=== PATIENT | female | born 1940 | race Caucasian/White ===

== ENCOUNTER 2019-10-05 16:12 | Inpatient (IN) | payer MEDICARE, BC ==
[~2019-10-05] VITALS: Ht 152.4 cm; Wt 149.2 kg
[~2019-10-05 16:12] MED LIST: ALPR0.254 PO; ASPI-482 PO; ASPI-630 PO; BRIM5DRO3 AU; BRIM5DRO3 EACHEYE; CIPR2.5D OS; DULO60CA45 PO; DULO60CA6 PO; FENT1PAT13 TP; FENT1PAT15 TP; FURO80TA3 PO; HYDR-2769 PO; INSU100C SQ; INSU100V13 SQ; INSU200I SQ; LEVIMER SQ; LEVO50TA5 PO; LISI-334 PO; META-21 PO; META800T PO; MONT10TA49 PO; POTA20TA4 PO; SIMV20TA18 PO; SITA100T PO
[2019-10-05] MEDS ORDERED: FLUT16SP NS (16:32)
[2019-10-05] MEDS ORDERED: POTA10TA17 PO (16:32)
[2019-10-05] MEDS ORDERED: diazePAM 2 MG TABLET PO PRN (16:45)
[2019-10-05] MEDS ORDERED: ACETAMINOPHEN 325 MG TABLET. PO PRN (16:45)
[2019-10-05] MEDS ORDERED: DOCUSATE SODIUM 100 MG CAPSULE. PO PRN (16:45)
[2019-10-05] MEDS ORDERED: BENZONATATE 100 MG CAPSULE. PO PRN (16:45)
[2019-10-05] MEDS ORDERED: ONDANSETRON PF 4 MG/2 ML VIAL. IVP PRN (16:45)
[2019-10-05] MEDS ORDERED: MAGNESIUM HYDROXIDE 2,400 MG/30 ML ORAL.SUSP. PO PRN (16:45)
[2019-10-05] MEDS: INSULIN LISPRO 300 UNITS/3 ML VIAL. SQ SCH (17:00)
[2019-10-05 19:00] VITALS: BP 152/60
[2019-10-05] MEDS: ALBUTEROL SULFATE 2.5 MG/3 ML NEBU. NEB SCH (20:49)
[2019-10-05] MEDS: PATCH REMOVAL. MC SCH (21:00)
[2019-10-05] MEDS: SIMVASTATIN 20 MG TABLET PO SCH (21:16)
[2019-10-05] MEDS: rOPINIRole 1 MG TABLET. PO SCH (21:16)
[2019-10-05] MEDS: ASPIRIN CHEWABLE 81 MG TABLET. PO SCH (21:16)
[2019-10-05] MEDS: MONTELUKAST SODIUM 10 MG TABLET. PO SCH (21:16)
[2019-10-05] MEDS: POTASSIUM CITRATE 10 MEQ TABLET.ER PO SCH (21:16)
[2019-10-05] MEDS: MUPIROCIN 2 % TOPICAL CREAM 30GM TUBE. TP SCH (21:16)
[2019-10-05] MEDS: FUROSEMIDE 80 MG TABLET. PO SCH (21:16)
[2019-10-05] MEDS: LISINOPRIL 20 MG TABLET PO SCH (21:16)
[2019-10-05] MEDS: INSULIN GLARGINE SYRINGE. SQ SCH (21:24)
[2019-10-05 23:00] VITALS: BP 118/99
[2019-10-06 03:00] VITALS: BP 123/84
[2019-10-06 03:47] LABS: BASO % 1 % (0-3); EOS # 0.3 x10^3/uL (0.0-0.7); EOS % 4 % (0-3); HEMATOCRIT 33.2 % (36.0-47.0); HEMOGLOBIN 10.7 g/dL (12.0-15.5); LYMPH # 0.9 x10^3/uL (1.0-4.8); LYMPH % 14 % (24-48); MEAN CORPUSCULAR HEMOGLOBIN 28 pg (25-35); MEAN CORPUSCULAR HGB CONC 32 g/dL (31-37); MEAN CORPUSCULAR VOLUME 86 fL (79-100); MONO # 0.9 x10^3/uL (0.0-1.1); MONO % 15 % (0-9); NEUT # 4.4 x10^3/uL (1.8-7.7); NEUT % 67 % (31-73); PLATELET COUNT 176 x10^3/uL (140-400); RED BLOOD COUNT 3.88 x10^6/uL (3.50-5.40); RED CELL DISTRIBUTION WIDTH 14.5 % (11.5-14.5); WHITE BLOOD COUNT 6.5 x10^3/uL (4.0-11.0)
[2019-10-06 04:00] LABS: CALCIUM 8.7 mg/dL (8.5-10.1); CREATININE 1.2 mg/dL (0.6-1.0); GFR 43.6; POTASSIUM 5.2 mmol/L (3.5-5.1)
[2019-10-06] MEDS: ALBUTEROL SULFATE 2.5 MG/3 ML NEBU. NEB SCH ×5 (06:04→22:00)
[2019-10-06 07:00] VITALS: BP 149/73
[2019-10-06] MEDS: LEVOTHYROXINE 50 MCG TABLET PO SCH (07:00)
[2019-10-06] MEDS: INSULIN LISPRO 300 UNITS/3 ML VIAL. SQ SCH ×3 (08:39→17:00)
[2019-10-06] MEDS: FLUTICASONE 50MCG/NASAL SPRAY 16GM BOTTLE. NS SCH (08:40)
[2019-10-06] MEDS: POTASSIUM CITRATE 10 MEQ TABLET.ER PO SCH (08:40)
[2019-10-06] MEDS: LISINOPRIL 20 MG TABLET PO SCH ×2 (08:41→21:20)
[2019-10-06] MEDS: rOPINIRole 1 MG TABLET. PO SCH ×2 (08:41→21:20)
[2019-10-06] MEDS: LINAGLIPTIN 5 MG TABLET PO SCH (08:41)
[2019-10-06] MEDS: MUPIROCIN 2 % TOPICAL CREAM 30GM TUBE. TP SCH ×2 (08:42→21:00)
[2019-10-06] MEDS: POLYETHYLENE GLYCOL 3350 17 GM PACKET. PO SCH (08:43)
[2019-10-06] MEDS: LIDOCAINE (700MG/PATCH) PATCH. TD SCH (08:45)
[2019-10-06] MEDS: DULoxetine HCL 30 MG CAPSULE.DR PO SCH (10:35)
[2019-10-06] MEDS: fentaNYL 100MCG/HR PATCH 1 PATCH PATCH TD SCH (10:36)
[2019-10-06] MEDS: INSULIN GLARGINE SYRINGE. SQ SCH ×2 (10:36→21:47)
[2019-10-06] MEDS: FUROSEMIDE 80 MG TABLET. PO SCH ×2 (10:36→21:20)
--- NOTE | 2019-10-06 10:36 | HP ---
ADMIT DATE: 10/06/2019 HISTORY OF PRESENT ILLNESS: The patient is a 79-year-old female patient who was admitted to [facility] with severe back pain. She has had a mechanical fall, was in her kitchen and fell backward, and landed squarely on her back. She might have lost consciousness temporarily. She was also noted to have some left-sided chest pain as well as pain radiating down her left leg. She did have also left-sided rib pain that is constant and dull in nature and moving makes her symptoms worse. The patient was admitted for pain management. She was extensively investigated in the Emergency Room and has had a CT scan of the head, which basically showed no acute intracranial finding. The x-ray of the chest and rib views showed the cardiomediastinal silhouette is similar in appearance. A rounded nodular opacity noted in the right hilum may reflect prominent vascular versus lymphadenopathy. No acutely displaced left-sided rib fracture identified. There are no significant pleural effusions. There is no pulmonary vascular congestion or pneumothorax. X-ray of the hip and pelvis showed there is no acute fracture or malalignment appreciated at the left hip noting that the study is limited due to the patient's large body habitus. CT scan of the orbit showed there is an inferior left orbital wall fracture, which may be chronic with a herniated fat. No evidence of herniation in the inferior rectus muscle. CT scan of the lumbar spine showed there is mild acute burst compression fracture of L1. There is no clear fracture line extension to the posterior element or retropulsion of the cortex into the central canal. She does have multilevel degenerative changes throughout the lumbar spine resulting in significant stenosis at the aforementioned levels and because of this finding and intractable pain, the patient was transferred to [facility] to consult the interventional radiologist to see whether she is a candidate for vertebroplasty. PAST MEDICAL HISTORY: Significant for congestive heart failure, hypertension, hyperlipidemia, morbid obesity, gastroesophageal reflux disease, generalized osteoarthritis, and hypothyroidism. PAST SURGICAL HISTORY: Significant for tonsillectomy, adenoidectomy, and tubal ligation. ALLERGIES: She is allergic to TETANUS. She is also allergic to IODINE CONTRAST, INTRAVENOUS PYELOGRAPHY DYE, and LYRICA. FAMILY HISTORY: Her father of myocardial infarction, has had glaucoma. Sister with multiple sclerosis. Mother with hypertension. SOCIAL HISTORY: She lives at home. Does not smoke, drink alcohol, or use any recreational drugs. REVIEW OF SYSTEMS: As per history of present illness. MEDICATIONS: She was transferred from [facility] to continue on following medications: MiraLax 17 g once a day, magnesium hydroxide 30 mL p.o. daily p.r.n. for constipation. She is on a Duragesic patch 100 mcg per hour topically q.72 h., hydrocodone/APAP 7.5/325 two tablets every 6 hours, furosemide 80 mg once a day, and Bactroban ointment applied topically twice a day. She is on Lidoderm patch applied topically at night time, on for 12 hours and off for 12 hours; Requip 1 mg twice a day; diazepam 2 mg twice a day; hydromorphone 1 mg IV every 2 hours; Colace 100 mg twice a day; potassium citrate 20 mEq twice a day; Lovenox 60 mg subcutaneously twice a day; Tradjenta 5 mg once a day. She is on Flonase 1 spray to each nostril twice a day and duloxetine or Cymbalta 60 mg daily. She is on aspirin 81 mg once a day, Humalog insulin 10 units before meals, levothyroxine 50 mcg once a day, Lantus insulin 30 units subcutaneously twice a day, simvastatin 20 mg at bedtime, Singulair 10 mg at bedtime, lisinopril 20 mg twice a day, Tessalon Perles 200 mg 3 times a day, albuterol sulfate 2.5 mg by nebulizer every 4 hours, ondansetron 4 mg IV every 8 hours, and Tylenol 650 mg every 4 hours as needed. PHYSICAL EXAMINATION: GENERAL: On arrival to [facility], the patient looked well and was clearly in no apparent respiratory distress. She was pale, but no jaundice, cyanosis, or thyromegaly. No jugular venous distention, but mild bilateral lower extremity edema. VITAL SIGNS: Her heart rate was 94, blood pressure was 157/67, temperature was 98.2, respiratory rate was 20, and oxygen saturation was 94% on room air. HEAD, EYES, EARS, NOSE, AND THROAT: Normocephalic, atraumatic. NECK: Supple. HEART: Showed normal first and second heart sounds. No gallop or murmur. CHEST: Clear to auscultation. No crepitation or rhonchi. ABDOMEN: Markedly distended, soft, nontender. NEUROLOGIC: She was awake, alert, responding appropriately. All cranial nerves intact. EXTREMITIES: She moves extremities without difficulty; however, whenever she tries to change her position or lying forward or any movement, precipitate severe back pain. LABORATORY DATA: Showed a white cell count 7200, hemoglobin 11, hematocrit 34, MCV 87, and platelet count of 174,000. Her chemistry showed a serum sodium 143, potassium 5.1, chloride 104, bicarbonate 33, anion gap of 6, BUN 44, creatinine 1.2, estimated GFR was 44 mL per minute. Her glucose 126 and calcium was 8.5. Total bilirubin, AST, ALT, and alkaline phosphatase were all normal. Total protein 6.2, albumin 2. Urinalysis was unremarkable. Nasal screen for MRSA by PCR was positive. ASSESSMENT AND PLAN: In summary, this is a 79-year-old female patient who was transferred from [facility] with intractable back pain. She has multiple imaging modalities including CT scan of the head, rib views, x-ray of the left hip, CT scan of the orbit, and a CT scan of the lumbar spine, which showed that she has mild acute burst compression fracture of L1 with no clear fracture line extension to the posterior elements or retropulsion of the cortex into the central canal. We will continue all her medication and we will consult Dr. Fuller tomorrow to see whether she is a candidate for vertebroplasty. KVNG CARRION MD DR: ARACELY/ana JOB#: [id number] / [id number]
[2019-10-06 11:00] VITALS: BP 159/56
[2019-10-06 15:00] VITALS: BP 98/47
[2019-10-06 19:00] VITALS: BP 146/64
[2019-10-06] MEDS: PATCH REMOVAL. MC SCH (21:00)
--- NOTE | 2019-10-06 21:00 | NUR ---
Joe held tonight. Patient to have procedure in am.
[2019-10-06] MEDS: SIMVASTATIN 20 MG TABLET PO SCH (21:20)
[2019-10-06] MEDS: ASPIRIN CHEWABLE 81 MG TABLET. PO SCH (21:20)
[2019-10-06] MEDS: MONTELUKAST SODIUM 10 MG TABLET. PO SCH (21:20)
[2019-10-06 23:00] VITALS: BP 133/64
[2019-10-07 02:58] VITALS: BP 138/43
[2019-10-07 04:44] LABS: CALCIUM 8.7 mg/dL (8.5-10.1); CREATININE 1.1 mg/dL (0.6-1.0); GFR 48.2; POTASSIUM 4.4 mmol/L (3.5-5.1)
[2019-10-07] MEDS: LEVOTHYROXINE 50 MCG TABLET PO SCH (06:38)
[2019-10-07 07:00] VITALS: BP 150/55
[2019-10-07] MEDS: ALBUTEROL SULFATE 2.5 MG/3 ML NEBU. NEB SCH ×5 (07:06→22:00)
[2019-10-07] MEDS: INSULIN LISPRO 300 UNITS/3 ML VIAL. SQ SCH ×3 (08:00→17:03)
[2019-10-07] MEDS: LISINOPRIL 20 MG TABLET PO SCH ×2 (08:41→21:01)
[2019-10-07] MEDS: POLYETHYLENE GLYCOL 3350 17 GM PACKET. PO SCH (08:42)
[2019-10-07] MEDS: MUPIROCIN 2 % TOPICAL CREAM 30GM TUBE. TP SCH ×2 (08:42→21:00)
[2019-10-07] MEDS: FLUTICASONE 50MCG/NASAL SPRAY 16GM BOTTLE. NS SCH (08:42)
[2019-10-07] MEDS: LIDOCAINE (700MG/PATCH) PATCH. TD SCH (08:42)
--- NOTE | 2019-10-07 09:49 | PN ---
DATE: 10/07/2019 SUBJECTIVE: The patient is resting flat, sleeping comfortably, in no apparent distress. She continued to complain of severe pain with any movement and when she tries to reposition herself lying forward. She was transferred from [facility] with new onset L1 compression fracture and despite being on multiple pain medications she continued to have severe pain. We did consult the interventional radiologist and the plan is for her to have an MRI prior to the vertebroplasty. PHYSICAL EXAMINATION: GENERAL: When I examined her this morning, she looked pale. No jaundice, cyanosis or thyromegaly. No jugular venous distension. No lower limb edema. VITAL SIGNS: Her heart rate was 69, blood pressure 150/55, temperature was 98, respiratory rate was 18 and oxygen saturation was 97% on 2 liters of oxygen. The rest of clinical exam is stable. Her intake and output were incompletely recorded. LABORATORY DATA: Her lab work this morning showed a white cell count 6500, hemoglobin 10, hematocrit 33, MCV 86 and platelet count of 176,000. Chemistry showed a serum sodium 142, potassium 4.4, chloride 101, bicarbonate 37, anion gap of 4, BUN 36, creatinine 1.1, estimated GFR was 48 mL per minute. Her glucose 117 and calcium was 8.7. ASSESSMENT: 1. Severe intractable low back pain due to L1 compression fracture. 2. Chronic diastolic congestive heart failure. 3. Hypertension. 4. Hyperlipidemia. 5. Morbid obesity. 6. Gastroesophageal reflux disease. 7. Generalized osteoarthritis. 8. Hypothyroidism. PLAN: To await the MRI of the lumbar spine and also evaluation by the interventional radiologist. KVNG CARRION MD DR: ARACELY/ana JOB#: [id number] / [id number]
[2019-10-07] MEDS: LINAGLIPTIN 5 MG TABLET PO SCH (10:19)
[2019-10-07] MEDS: rOPINIRole 1 MG TABLET. PO SCH ×2 (10:19→21:00)
[2019-10-07] MEDS: FUROSEMIDE 80 MG TABLET. PO SCH ×2 (10:20→21:00)
[2019-10-07] MEDS: DULoxetine HCL 30 MG CAPSULE.DR PO SCH (10:20)
[2019-10-07] MEDS: INSULIN GLARGINE SYRINGE. SQ SCH ×2 (10:28→21:00)
[2019-10-07 11:00] VITALS: BP 173/51
[2019-10-07 11:00] LABS: PROTHROMBIN TIME PATIENT 13.2 SEC (11.7-14.0)
[2019-10-07] MEDS: HYDROcodone/APAP 7.5/325MG 1 TAB TABLET PO PRN ×2 (11:21→17:04)
--- NOTE | 2019-10-07 11:34 | NUR ---
SW following for discharge planning. Chart reviewed, discussed with RN, pt is from home alone. Pt having an MRI today, possible procedure tomorrow (10/08/19). Pt currently on 2L o2. SW will continue to follow.
[2019-10-07 15:00] VITALS: BP 153/59
[2019-10-07 19:05] VITALS: BP 126/43
[2019-10-07] MEDS: MONTELUKAST SODIUM 10 MG TABLET. PO SCH (21:00)
[2019-10-07] MEDS: SIMVASTATIN 20 MG TABLET PO SCH (21:00)
[2019-10-07] MEDS: ASPIRIN CHEWABLE 81 MG TABLET. PO SCH (21:00)
[2019-10-07] MEDS: PATCH REMOVAL. MC SCH (21:00)
--- NOTE | 2019-10-07 22:17 | NUR ---
non-administered lovenox and aspirin. pt. will go to surgery in morning. Non-administered lantus because blood sugar was 77.
[2019-10-07 23:05] VITALS: BP 140/52
[2019-10-08] VITALS (12 sets, daily range): BP systolic 124–168; BP diastolic 30–77
[2019-10-08] MEDS: HYDROcodone/APAP 7.5/325MG 1 TAB TABLET PO PRN (03:49)
[2019-10-08] MEDS: LEVOTHYROXINE 50 MCG TABLET PO SCH (07:00)
[2019-10-08] MEDS: INSULIN LISPRO 300 UNITS/3 ML VIAL. SQ SCH ×3 (08:00→17:00)
[2019-10-08] MEDS: ALBUTEROL SULFATE 2.5 MG/3 ML NEBU. NEB SCH ×5 (08:08→22:00)
[2019-10-08] MEDS: FUROSEMIDE 80 MG TABLET. PO SCH ×2 (08:17→21:17)
[2019-10-08] MEDS: DULoxetine HCL 30 MG CAPSULE.DR PO SCH (08:17)
[2019-10-08] MEDS: LISINOPRIL 20 MG TABLET PO SCH ×2 (08:18→21:17)
[2019-10-08] MEDS: rOPINIRole 1 MG TABLET. PO SCH ×2 (08:18→21:17)
[2019-10-08] MEDS: LINAGLIPTIN 5 MG TABLET PO SCH (08:18)
[2019-10-08] MEDS: POLYETHYLENE GLYCOL 3350 17 GM PACKET. PO SCH (08:19)
[2019-10-08] MEDS: MUPIROCIN 2 % TOPICAL CREAM 30GM TUBE. TP SCH ×2 (08:21→21:00)
[2019-10-08] MEDS: LIDOCAINE (700MG/PATCH) PATCH. TD SCH (08:25)
[2019-10-08] MEDS: FLUTICASONE 50MCG/NASAL SPRAY 16GM BOTTLE. NS SCH (08:25)
[2019-10-08] MEDS: INSULIN GLARGINE SYRINGE. SQ SCH ×2 (09:00→21:18)
--- NOTE | 2019-10-08 09:03 | PN ---
DATE: 10/08/2019 SUBJECTIVE: The patient is resting flat in bed, no apparent distress. Apparently, MRI was not done yesterday. She obviously continued to have severe pain with movement, but she is pain free as long as she is sitting still. OBJECTIVE: GENERAL: When I examined her this morning, she looked well and was clearly in no apparent respiratory distress. VITAL SIGNS: Her heart rate was 75, blood pressure was 150/49, temperature was 97.6, respiratory rate was 18 and oxygen saturation was 95% on 3 liters of oxygen. The rest of clinical exam is stable, has not really changed. LABORATORY DATA: Her lab work showed that her blood sugar was well controlled. ASSESSMENT: 1. Intractable low back pain due to L1 compression fracture. 2. Chronic diastolic congestive heart failure, clinically well-compensated. 3. Hypertension. 4. Hyperlipidemia. 5. Morbid obesity. 6. Gastroesophageal reflux disease. 7. Generalized osteoarthritis. 8. Hypothyroidism. PLAN: Continue with pain management. Continue to monitor her blood sugar and adjust insulin as needed. Await the MRI as well as the Interventional Radiology evaluation. KVNG CARRION MD DR: ARACELY/ana JOB#: [id number] / [id number]
--- NOTE | 2019-10-08 09:09 | NUR ---
IP: Pt has a recent hx of + mrsa screen at [facility] on 10/01/19. Pt to be in contact precautions. continue Nozin/CHG decolonization.
[2019-10-08] MEDS: HYDROmorphone 2 MG/ML VIAL IV PRN ×2 (10:26→16:43)
[2019-10-08] MEDS ORDERED: LIDOCAINE WITH 8.4% SOD BICARB 3 ML DISP.SYRIN. ONE ×2 (12:58→13:55)
[2019-10-08] MEDS ORDERED: GADOTERATE 5 MMOL/10ML VIAL. ONE (13:07)
[2019-10-08] MEDS ORDERED: MIDAZOLAM HCL/PF 2 MG/2 ML VIAL. IV ONE (13:15)
[2019-10-08] MEDS ORDERED: GADOTERATE 5 MMOL/10ML VIAL. IVP ONE (13:15)
[2019-10-08] MEDS ORDERED: LIDOCAINE WITH 8.4% SOD BICARB 3 ML DISP.SYRIN. IJ ONE (13:15)
[2019-10-08] MEDS ORDERED: fentaNYL PF VIAL 100 MCG/2 ML VIAL IV ONE (13:15)
[2019-10-08] MEDS ORDERED: MIDAZOLAM HCL/PF 2 MG/2 ML VIAL. ONE (13:16)
[2019-10-08] MEDS ORDERED: fentaNYL PF VIAL 100 MCG/2 ML VIAL ONE (13:16)
--- NOTE | 2019-10-08 14:15 | PDOC ---
MODERATE SEDATION ASSESSMENT RISKS/ALTERNATIVES Risks/Alternatives Risks and alternatives of this type of sedation and procedure discussed with: RISK/ALTERNATIVES: Patient H & P ON CHART H & P H & P on chart and reviewed for co-morbid conditions and appropriate labs. H&P ON CHART: Yes STATUS PREG STATUS ASSESSED: Yes MEDS/ALLERGIES REVIEWED Meds/Allergies Reviewed Medications and Allergies including time and route of recently administered narcotics and sedatives. MEDS/ALLERGIES REVIEWED: Yes ASA RATING ASA RATING: II AIRWAY ASSESSMENT Airway Assessment Airway patency, oral function limitations, presence of caps, crowns, dentures, partials, and ability to extend neck assessed. AIRWAY ASSESSMENT: Yes MALLAMPATI SCORE MALLAMPATI SCORE: II PRE-SEDATION ASSESSMENT PRE-SEDATION ASSESSMENT: Yes STEVEN ROSENBAUM MD Oct 08, 2019 14:15
--- NOTE | 2019-10-08 14:15 | PDOC ---
BRIEF OPERATIVE NOTE Pre-Op Diagnosis L1 compression fracture Post-Op Diagnosis same Procedure Performed L1 kyphoplasty Surgeon Chaparrita Anesthesia Type: Conscious Sedation Findings L1 kyphoplasty and attempted Bx. Bx yielded only blood without bony trabecula consistent with severe osteopenia Complications No immediate STEVEN ROSENBAUM MD Oct 08, 2019 14:15
--- NOTE | 2019-10-08 14:56 | NUR ---
SW following. Discussed with RN, pt having a kyphoplasty today. PT/OT recommending SNU. SW to meet with pt to determine discharge planning. SW will continue to follow.
--- NOTE | 2019-10-08 15:14 | RAD ---
Procedure: Kyphoplasty of L1, and biopsy of L1 Clinical Indication: 79-year-old with debilitating acute osteoporotic compression fracture of L1 Sedation: Conscious sedation was administered with a total intraprocedural [id number]-[id number] time of 39 minutes. The patient was monitored by a qualified independent observer throughout the time of sedation. Please refer to the medical record for exact doses of medications utilized to achieve moderate sedation. Antibiotics: Antibiotic was administered intravenously within 1 hour of the procedure start time. Exposure: Kerma-Area Product: 126 Gycm2 Sterility: All elements of maximal sterile barrier technique including the use of a cap, mask, sterile gown, sterile gloves, large sterile sheet, appropriate hand hygiene, and 2% chlorhexidine for cutaneous antisepsis (or acceptable alternative antiseptic per current guidelines) were followed for this procedure. Consent: The procedure was explained in its entirety to the patient or the patients designated factory representative by a member of the treatment team, including a discussion of the risks, benefits and commonly accepted alternatives to the procedure, as well as the expected consequences of no therapy whatsoever. Discussion of the risks included, but was not limited to, those that are most frequent and those that are rare but possibly severe or life-threatening, as well as the possibility of unforeseen complications. Technique and Findings: Following informed consent, the patient was prepped and draped in usual sterile fashion. 1% lidocaine was used to achieve local anesthesia over the left paraspinal soft tissues. A small dermatotomy was made. Under fluoroscopic guidance, a 10-gauge kyphoplasty needle was advanced to the anterior one third of the L1 vertebral body 2 separate coaxial 13-gauge bone biopsy needle passes were performed, but yielded scant or no bony tissue. Specimen appeared to consistent primarily gross blood, however this was preserved in formalin and sent for histopathologic analysis. A balloon was then used to create a cavity within the vertebral body. Polymethyl methacrylate was then instilled into the vertebral body. The needle was then removed and hemostasis was achieved with manual compression. Complications: No immediate Impression: 1. Fluoroscopic guided biopsy and kyphoplasty of L1 as described. Biopsy yielded only sparse or no bony tissue. This is most consistent with severe osteopenia.
--- NOTE | 2019-10-08 16:33 | RAD ---
MRI Lumbar Spine without contrast History: Fall, new onset L1 compression fracture, intractable low back pain Technique: Multiplanar, multi sequential noncontrast MR imaging was performed of the lumbar spine. Comparison: March 13, 2015 Findings: There is some motion degradation. There is L1 vertebral body fracture with associated marrow edema signified by STIR hyperintense and T1 hypointense signal, more confluent cleft of fluid more centrally of the vertebral body. There is very mild osseous retropulsion. There is also likely component of anterior epidural signal change posterior to the L1 vertebral body probably component of epidural hemorrhage somewhat poorly characterized due to motion, likely paxe-au-walipllt indentation upon the ventral thecal sac near the mid to superior aspect of L1 on the order of 2 to 3 mm AP. Conus likely terminates near L1 although poorly distinguished. There is L3-4 endplate edema somewhat greater on the left, mild increased STIR signal in the L3-4 intervertebral disc space on the left. There is mild L4-5 endplate edema. There is also some edema of the left L4 pedicle extending to the facet articular process. There is moderate to severe narrowing of the L3-4 and L4-5 intervertebral disc spaces, mild disc desiccation L5-S1. There is degree of fat replacement of the left iliopsoas muscle. T12-L1: There is facet degenerative change. Neural foramina and spinal canal are overall adequate. L1-L2: There is facet degenerative change and buckling of the ligamentum flavum. There is prominence of epidural fat posteriorly and in the lateral recesses bilaterally overall mild attenuation of the thecal sac. There is mild narrowing of the right neural foramen from posteriorly by facet, left neural foramen overall adequate. L2-L3: There is prominence of posterior epidural fat centrally. There is mild to moderate buckling of the ligamentum flavum and mild facet hypertrophic change. There is overall mild attenuation of the thecal sac. Neural foramina are overall adequate. L3-L4: There is bulge/broad protrusion. There is mild buckling of the ligamentum flavum and mild to moderate facet degenerative change. There is prominence of posterior epidural fat centrally. Combination of findings results in overall moderate spinal stenosis with limited preserved subarachnoid space, left greater than right lateral recess stenosis. There is moderate to severe left and [id number]-[id number] right neural foramina compromise. L4-L5: There is bfxn-cl-cdjblomd right facet degenerative change, minimally on the left. There is mild buckling of the ligamentum flavum. There is mild prominence of posterior epidural fat centrally. There is minimal disc osteophyte complex and bulge. There is overall mild attenuation of the thecal sac. There is severe narrowing of the right neural foramen greater distally in part by disc osteophyte complex and protrusion contacting the exiting right L4 nerve root in the neural foramina and extraforaminal region. Left neural foramen is overall adequate. L5-S1: There is bilateral facet hypertrophic change and mild buckling of the ligamentum flavum. Spinal canal is overall adequate. There is moderate to severe neural foramina compromise bilaterally with degree of contact of the exiting L5 nerve roots bilaterally. Impression: 1. There is recent L1 vertebral body fracture without osseous retropulsion although there is suspected component of epidural hematoma posterior to the L1 vertebral body indenting the ventral thecal sac. 2. There is degenerative disc disease at L3-4 and L4-5, endplate edema greatest at L3-4 more likely to be reactive/degenerative in etiology. There is moderate spinal stenosis L3-4, other mild attenuation of the thecal sac as stated. 3. There is neural foramina compromise as stated, more significant narrowing bilaterally at L5-S1, on the right at L4-5, and on the left at L3-4 Electronically signed by: Henrique Orozco MD (10/08/2019 4:30 PM) [facility]
[2019-10-08] MEDS: PATCH REMOVAL. MC SCH (21:00)
[2019-10-08] MEDS: MONTELUKAST SODIUM 10 MG TABLET. PO SCH (21:16)
[2019-10-08] MEDS: SIMVASTATIN 20 MG TABLET PO SCH (21:17)
[2019-10-08] MEDS: ASPIRIN CHEWABLE 81 MG TABLET. PO SCH (21:17)
[2019-10-09 02:46] VITALS: BP 128/40
[2019-10-09 07:00] VITALS: BP 140/56
[2019-10-09] MEDS: LEVOTHYROXINE 50 MCG TABLET PO SCH (07:27)
[2019-10-09] MEDS: INSULIN LISPRO 300 UNITS/3 ML VIAL. SQ SCH ×2 (07:53→12:00)
[2019-10-09] MEDS: MUPIROCIN 2 % TOPICAL CREAM 30GM TUBE. TP SCH (08:15)
[2019-10-09] MEDS: rOPINIRole 1 MG TABLET. PO SCH (08:15)
[2019-10-09] MEDS: LINAGLIPTIN 5 MG TABLET PO SCH (08:15)
[2019-10-09] MEDS: HYDROcodone/APAP 7.5/325MG 1 TAB TABLET PO PRN (08:15)
[2019-10-09] MEDS: FLUTICASONE 50MCG/NASAL SPRAY 16GM BOTTLE. NS SCH (08:15)
[2019-10-09] MEDS: DULoxetine HCL 30 MG CAPSULE.DR PO SCH (08:16)
[2019-10-09] MEDS: FUROSEMIDE 80 MG TABLET. PO SCH (08:16)
[2019-10-09] MEDS: LISINOPRIL 20 MG TABLET PO SCH (08:16)
[2019-10-09] MEDS: LIDOCAINE (700MG/PATCH) PATCH. TD SCH (08:17)
[2019-10-09] MEDS: fentaNYL 100MCG/HR PATCH 1 PATCH PATCH TD SCH (08:17)
[2019-10-09] MEDS: POLYETHYLENE GLYCOL 3350 17 GM PACKET. PO SCH (08:18)
[2019-10-09] MEDS: ALBUTEROL SULFATE 2.5 MG/3 ML NEBU. NEB SCH ×3 (08:50→14:00)
[2019-10-09] MEDS: HYDROmorphone 2 MG/ML VIAL IV PRN (09:55)
[2019-10-09] MEDS: INSULIN GLARGINE SYRINGE. SQ SCH (09:59)
--- NOTE | 2019-10-09 10:54 | NUR ---
SW following. Chart reviewed, discussed with RN. Pt is from home. PT/OT recommending SNU. SW met with pt, pt agreeable to SNU and would like referral sent to [facility] (ph: [phone], fax: [phone]). SW awaiting acceptance decision and anticipated discharge date. SW will continue to follow. Addendum: 10/09/19 at 1320 by ASHIA FERGUSON SW following. [facility] is still reviewing pt. RN notified. Addendum: 10/09/19 at 1441 by ASHIA FERGUSON Pt has been accepted at [facility], transportation will collect pt at 1530. RN notified. No further SW needs.
[2019-10-09 11:00] VITALS: BP 110/48
[2019-10-09] MEDS ORDERED: FENT1PAT21 TP (11:35)
[2019-10-09] MEDS ORDERED: OXYC5TAB4 PO (11:35)
[2019-10-09] MEDS ORDERED: DIAZ2TAB PO (11:36)
--- NOTE | 2019-10-09 11:39 | SNU/HH DC ---
DISCHARGE ORDERS DISCHARGE INFORMATION: DISCHARGE DATE: Oct 09, 2019 FINAL DIAGNOSIS intractable back pain L1 compression fx s/p vertebroplasty CONDITION ON DISCHARGE: Stable CODE STATUS: Code Status: Full PENITENTIARY: SNF STAY <30 DAYS: Yes POST DISCHARGE ORDERS: ACTIVITY ORDERS: Activity as tolerated DIET AFTER DISCHARGE: Regular TREATMENT/EQUIPMENT ORDERS: Physical Therapy For: Evalulation/Treatment Occupational Therapy For: Evaluation/Treatment DISCHARGE MEDICATIONS: Home Meds Active Scripts Diazepam (VALIUM) 2 Mg Tablet, 2 MG PO BID for spasm for 30 Days, #60 TAB Prov:KVNG CARRION MD 10/09/19 Oxycodone Hcl (OXYCODONE HCL IMMED.RELEASE ) 5 Mg Tablet, 5 MG PO PRN Q6HRS PRN for PAIN for 30 Days, #180 TAB 0 Refills Prov:KVNG CARRION MD 10/09/19 Fentanyl (FENTANYL 100mcg/hr) 1 Each Patch.td72, 1 PATCH TP Q3DAYS for pain for 30 Days, #30 PATCH Prov:KVNG CARRION MD 10/09/19 Reported Medications Potassium Citrate (POTASSIUM CITRATE) 10 Meq Tablet.er, 2 TAB PO BID for supplement, #360 TAB 3 Refills 10/05/19 Fluticasone Propionate (FLUTICASONE PROPIONATE NASAL SPRAY) 16 Gm [place].susp, 2 SPRAY NS DAILY for unknown, #1 INHALER 11 Refills 10/05/19 Lisinopril (LISINOPRIL) 20 Mg Tablet, 20 MG PO BID for HTN, #30 TAB 0 Refills 02/11/16 Simvastatin (SIMVASTATIN) 20 Mg Tablet, 20 MG PO QHS for cholesterol, #30 TAB 0 Refills 02/11/16 Sitagliptin Phosphate (JANUVIA) 100 Mg Tablet, 100 MG PO DAILY, TAB 02/11/16 Aspirin (ASPIRIN) 81 Mg Tab.chew, 1 TAB PO HS, #30 TAB 3 Refills 02/11/16 Metaxalone (METAXALONE) 800 Mg Tablet, 800 MG PO PRN BID PRN for MUSCLE SPASMS 02/11/16 Duloxetine Hcl (DULOXETINE HCL) 60 Mg Capsule.dr, 60 MG PO DAILY, CAP 02/11/16 Furosemide (FUROSEMIDE) 80 Mg Tablet, 80 MG PO BID, TAB 02/11/16 Insulin Detemir (LEVEMIR) 100 Unit/1 Ml Vial, 30 UNIT SQ BID for DIABETES, VIAL 05/06/15 Insulin Lispro (HUMALOG) 100 Unit/1 Ml Cartridge, 10 UNIT SQ TIDWMEALS for dm, EACH 05/06/15 Montelukast Sodium (MONTELUKAST SODIUM TABLET ) 10 Mg Tablet, 10 MG PO HS for FOR ASTHMA, #30 TAB 0 Refills 05/06/15 Levothyroxine Sodium (LEVOTHYROXINE SODIUM) 50 Mcg Tablet, 1 TAB PO DAILY, #90 TAB 3 Refills 05/06/15 Discontinued Reported Medications Insulin Lispro (HUMALOG) 100 Unit/1 Ml Cartridge, 100 UNIT SQ, EACH 02/11/16 Insulin Lispro (Humalog Kwikpen) 200 Unit/1 Ml Insuln.pen, 200 UNIT SQ 02/11/16 Potassium Chloride (KLOR-CON M20) 20 Meq Tab.er.prt, 2 TAB PO DAILY, #90 TAB 1 Refill 02/11/16 Levothyroxine Sodium (LEVOTHYROXINE SODIUM) 50 Mcg Tablet, 1 TAB PO DAILY, #30 TAB 5 Refills 02/11/16 Alprazolam (ALPRAZOLAM) 0.25 Mg Tablet, 0.25 MG PO PRN Q6HRS PRN for ANXIETY / AGITATION, TAB 0 Refills 02/11/16 Hydrocodone Bit/Acetaminophen (HYDROCODONE-APAP 10-325 ) 1 Each Tablet, 1 TAB PO PRN Q6HRS PRN for PAIN, TAB 0 Refills 02/11/16 Fentanyl (FENTANYL 25mcg/hr) 1 Each Patch.td72, 1 PATCH TP Q3DAYS, #10 PATCH 02/11/16 Brimonidine Tartrate (ALPHAGAN P) 5 Ml Drops, 2 DROP AU BID, #15 ML 3 Refills 02/11/16 [Levimer] No Conflict Check, 20 UNITS SQ BIDAFTMEAL 02/11/16 KVNG CARRION MD Oct 09, 2019 11:39
[2019-10-09 15:00] VITALS: BP 100/32
--- NOTE | 2019-10-11 09:06 | PATHOLOGY ---
[facility] Accession Number: [id number] . 01 Material submitted: . vertebral column - L1 BX . 01 Clinical history: . L1-compression fracture . 02 Diagnosis: L1 vertebral body biopsy: - Blood clot - no evidence of malignancy. (JPM:nam; 10/09/2019) MBR 10/09/2019 1547 Local . 02 Electronically signed: . Yosef Urena MD, Pathologist NPI- [id number] . 01 Gross description: . Received in formalin labeled "Valentina Davis, L1 BX," is an aggregate of dark brown soft tissue measuring 2.6 x 1.5 x 0.2 cm, admixed with small fragments of possible bone. The specimen is filtered and entirely submitted in cassette A1, following decalcification. (TSD; 10/08/2019) TOB/TOB 10/08/2019 2250 Local . 02 Pathologist provided ICD-10: M48.56XA . 02 CPT . 610417, [id number] Specimen Comment: A courtesy copy of this report has been sent to [phone] Specimen Comment: [phone], Specimen Comment: Report sent to ,DR CARRION / DR MATHEW Specimen Comment: Report sent to Performed at: 01 [facility] [address], [place] [id number] MD Vinny Cannon MD Phone: [phone] Performed at: 02 [facility] [address] [place], [place] [id number] MD Yosef Urena MD Phone: [phone]
== END 2019-10-09 16:01 | DRG 478 ==
LOC: 4 NORTH 16:12
PROVIDERS: ADMIT Internal Medicine; ATTEND Internal Medicine
PROC: 0QS03ZZ Reposition Lumbar Vertebra, Percutaneous Approach (ICD-10-PCS; principal; 2019-10-08)
PROC: 0QB03ZX Excision of Lumbar Vertebra, Percutaneous Approach, Diagnostic (ICD-10-PCS; 2019-10-08)
PROC: 0QU03JZ Supplement Lumbar Vertebra with Synthetic Substitute, Percutaneous Approach (ICD-10-PCS; 2019-10-08)
DX: S32.019A Unspecified fracture of first lumbar vertebra, initial encounter for closed fracture (principal); I50.32 Chronic diastolic (congestive) heart failure; Z68.44 Body mass index [BMI] 60.0-69.9, adult; I11.0 Hypertensive heart disease with heart failure; E78.5 Hyperlipidemia, unspecified; M48.061 Spinal stenosis, lumbar region without neurogenic claudication; K21.9 Gastro-esophageal reflux disease without esophagitis; M15.9 Polyosteoarthritis, unspecified; E03.9 Hypothyroidism, unspecified; E66.01 Morbid (severe) obesity due to excess calories; Y93.89 Activity, other specified; Y92.090 Kitchen in other non-institutional residence as the place of occurrence of the external cause; Y99.8 Other external cause status; Z88.7 Allergy status to serum and vaccine; Z88.8 Allergy status to other drugs, medicaments and biological substances; Z91.041 Radiographic dye allergy status; Z82.0 Family history of epilepsy and other diseases of the nervous system; Z82.49 Family history of ischemic heart disease and other diseases of the circulatory system
CPT/HCPCS: 22514; 36415; 72148; 80048; 82962; 85025; 85610; 94640; 94760; 99152; 99153; A9575; C1713; C1725; C1892; J0696; J1170; J1650; J1815; J2250; J3010; J7613; 97110; 97116; 97535; G0378